=== PATIENT | male | born 1975 | race Caucasian/White ===

== ENCOUNTER → 2016-04-25 | Outpatient (REF) | payer OTHER | LOC: M LAB REF 11:13 | PROVIDERS: ATTEND Physician Assistant | DX: R50.9 Fever, unspecified (principal) ==

== ENCOUNTER → 2017-01-04 | Outpatient (CLI) | payer OTHER | LOC: M LAB 09:43 | PROVIDERS: ATTEND Family Medicine | DX: Z86.19 Personal history of other infectious and parasitic diseases (principal); Z82.49 Family history of ischemic heart disease and other diseases of the circulatory system ==

== ENCOUNTER 2017-03-25 09:06 | Day surgery (SDC) | payer OTHER ==
[2017-03-25] MEDS: LR 1,000 ML IV (09:30)
[2017-03-25] MEDS ORDERED: NS 1,000 ML IV (09:30)
[2017-03-25] MEDS ORDERED: fentaNYL 250 MCG/5 ML INJECTION (J3010) As Ordered (10:10)
[2017-03-25] MEDS ORDERED: ONDANSETRON 4MG/2ML VIAL (J2405) As Ordered (10:10)
[2017-03-25] MEDS ORDERED: LIDOCAINE 2% INJ 100 MG/5 ML SDV (FOR ANES.) As Ordered (10:10)
[2017-03-25] MEDS ORDERED: dexameTHASONE 4 MG/ML 1ML VIAL (J1100) As Ordered (10:10)
[2017-03-25] MEDS ORDERED: PROPOFOL 200 MG/20 ML VIAL As Ordered (10:10)
[2017-03-25] MEDS ORDERED: MIDAZOLAM INJ 2 MG/2 ML VIAL (J2250) As Ordered ×2 (10:10→11:26)
[2017-03-25] MEDS ORDERED: ROCURONIUM BROMIDE 50 MG/5 ML VIAL As Ordered (10:10)
[2017-03-25] MEDS ORDERED: CHLOROPROCAINE PRES. FREE 3% INJ 20 ML VIAL (J2400) As Ordered (11:36)
[2017-03-25] MEDS ORDERED: KETAMINE HCL 200 MG/20 ML VIAL As Ordered (11:44)
[2017-03-25] MEDS: BUPIVACAINE LIPOSOME/PF 1.3% 20 ML VIAL (13.3MG/ML)(EXPAREL) As Ordered (12:12)
[2017-03-25] MEDS: BUPIVACAINE HCL 0.25% 30 ML VIAL As Ordered (12:12)
[2017-03-25] MEDS: LIDOCAINE W/EPINEPHRINE 1% 20ML VIAL As Ordered (12:12)
[2017-03-25] MEDS ORDERED: ACETAMINOPHEN TAB 650MG DOSE (2X325MG) PO (12:45)
[2017-03-25] MEDS ORDERED: KETOROLAC 30 MG/ML VIAL (J1885) IV ×2 (12:45→18:00)
[2017-03-25] MEDS ORDERED: LR 1,000 ML IV ×2 (12:45)
[2017-03-25] MEDS ORDERED: PERCOCET 5MG/325MG TAB PO (12:45)
[2017-03-25] MEDS ORDERED: ONDANSETRON 4MG/2ML VIAL (J2405) IV (12:45)
== END 2017-03-25 14:55 | disposition home or self-care (01) ==
LOC: M SDC 09:06
DX: K42.9 Umbilical hernia without obstruction or gangrene (principal); K43.9 Ventral hernia without obstruction or gangrene; Z88.0 Allergy status to penicillin; Z79.899 Other long term (current) drug therapy; Z87.891 Personal history of nicotine dependence; Z86.19 Personal history of other infectious and parasitic diseases; Z86.59 Personal history of other mental and behavioral disorders
CPT/HCPCS: 49585